=== PATIENT | female | born 1985 | race Two or more races ===

== ENCOUNTER 2017-09-09 17:38 | Inpatient (IN) | payer BC, OTHER ==
[2017-09-09 17:46] VITALS: BMI 30.9
[2017-09-09] MEDS: Lactated Ringer's 1,000 ML IV SCH ×2 (18:00→18:51)
[2017-09-09] MEDS ORDERED: Lidocaine 1% Inj (20ml) ONE (18:20)
[2017-09-09] MEDS ORDERED: Bupivacaine HCl 0.25% PF (10 ml) Inj ONE (18:30)
[2017-09-09] MEDS ORDERED: Fentanyl/Bupivacaine HCl 250 ML EPI ONE (18:35)
[2017-09-09 18:37] LABS: BASO # 0.1 K/uL (0.0-0.2); BASO % 0.5 % (0.0-2.0); EOS # 0.1 K/uL (0.0-0.7); EOS % 0.4 % (0.0-4.0); HEMOGLOBIN 10.3 g/dL (12.0-16.0); LYMPH # 2.6 K/uL (1.0-4.3); LYMPH % 20.1 % (20.0-40.0); MEAN CELL VOLUME 84.5 fl (81.0-99.0); MEAN CORPUSCULAR HEMOGLOBIN 27.9 pg (27.0-31.0); MEAN PLATELET VOLUME 10.4 fl (7.2-11.7); MONO # 0.8 K/uL (0.0-0.8); MONO % 6.4 % (0.0-10.0); NEUT # 9.3 K/uL (1.8-7.0); NEUT % 72.6 % (50.0-75.0); NRBC % 0.1 % (0.0-0.0); RBC 3.69 Mil/uL (3.80-5.20); RED CELL DISTRIBUTION WIDTH 15.2 % (11.5-14.5); WHITE BLOOD COUNT 12.8 K/uL (4.8-10.8)
--- NOTE | 2017-09-09 19:06 | OBADHP ---
Datetime: 09/09/2017 18:20 Admit Comment, IP Provider: Patient is a @ 39.4 wks with hypothyroidism, previous delivery . Antepartum history includes history of polyhydramnios, no other problems. NO allergies, taking synt hroid VE=7/80/-2 [id number] mod doyle, +accels, no decels TOCO = ctxning q 5-7 mins A/P 1. Patient admitted for labor, 7cm 2. IVF, CBC, type and screen 3. epidural for pain 4. CEFM and TOCO Pelvic Type - PN: Adequate Extremities - PN: Normal Abdomen - PN: Normal Back - PN: Normal Breast - PN: Normal Lungs - PN: Normal Heart - PN: Normal Thyroid - PN: Normal Neurologic - PN: Normal HEENT - PN: Normal General - PN: Normal Presentation-Admit: Vertex FHR - Baseline A Provider: 120 Contraction Comments Provider: q 5-7 Vital Signs Provider: Reviewed; Within Normal Limits IP Chief Complaint: Uterine contractions NICHD Variability Prov Fetus A: Moderate 6-25bpm NICHD Decel Fetus A IP Provider: None; Early Dilatation, Provider: 7 Effacement, Provider: 70 Station, Provider: -2 Genitourinary Exam: Normal DTRs - PN: Normal IP Adm Impression: Term, intrauterine IP Admit Plan: Admit to unit; Initiate labor protocol
--- NOTE | 2017-09-09 19:52 | OBPN ---
Datetime: 09/09/2017 19:41 IP Progress Impression: Normal progression of labor IP Informed Consent Obtain: Vaginal Delivery IP Procedures: Sterile Vag Exam IP Progress Plan: Continue present management Membranes, Provider: Ruptured Amniotic Fluid Color, Provider: Meconium, Light Contraction Comments Provider: q 4mins FHR - Baseline A Provider: 150 IP Progress Note Comment: Patient evaluated, comfortable s/p epidural VE=8/80/-1, ruptured, light meconium [id number] mod doyle, +accels, early decels TOCO = james q 4 mins A/P 1. AROM, 8cm, light 2. CEFM and TOCO 3. RE-evaluate as needed Vital Signs Provider: Reviewed; Within Normal Limits NICHD Variability Prov Fetus A: Moderate 6-25bpm Dilatation, Provider: 8 Effacement, Provider: 80 Station, Provider: -1 NICHD Decel Fetus A IP Provider: Early Datetime: 09/09/2017 18:20 Presentation-Admit: Vertex
[2017-09-09] MEDS ORDERED: Oxycodone/Acetaminophen 5/325 mg Tab PO PRN ×2 (23:43)
[2017-09-10] MEDS ORDERED: Oxycodone/Acetaminophen 5/325 mg Tab PO PRN ×2 (00:06)
[2017-09-10] MEDS: Levothyroxine 200 MCG TAB PO SCH (06:11)
[2017-09-10 07:56] LABS: HEMOGLOBIN 8.3 g/dL (12.0-16.0); MEAN CELL VOLUME 84.8 fl (81.0-99.0); MEAN CORPUSCULAR HEMOGLOBIN 27.5 pg (27.0-31.0); MEAN CORPUSCULAR HGB CONC 32.4 g/dL (33.0-37.0); RBC 3.03 Mil/uL (3.80-5.20); RED CELL DISTRIBUTION WIDTH 15.2 % (11.5-14.5); WHITE BLOOD COUNT 11.7 K/uL (4.8-10.8)
--- NOTE | 2017-09-10 08:41 | OBDS ---
DELIVERY PERSONNEL Delivery Doctor: Julian Linda MD Tie Sawyer: Kesha Emanuel RN Anesthesiologist: Jonn Knowles MD MATERNAL INFORMATION Delivery Anesthesia: Local; Epidural Medications in Delivery: Oxytocin Estimated Blood Loss (ml): 300 Placenta Cultured: No Maternal Complications: None Provider Comments: Normal spontaneous vaginal delivery. Patient delivered viable infant female with Apgars of 5 and 9 at one and 5 minutes respectively. I nfant delivered via MARY position. Placenta delivered spontaneously. Laceration repaired, as above. Pa tient tolerated delivery and repair well. No complications. Estimate blood loss 200 mL. LABOR SUMMARY EDC: 09/12/2017 00:00 No. Babies in Womb: 1 Attempted: No Labor Anesthesia: Epidural LABOR INFORMATION Reason for Induction: Not Applicable Onset of Labor: 09/09/2017 19:55 Complete Dilatation: 09/09/2017 20:15 Oxytocin: N/A Group B Beta Strep: Negative Steroids Given: None Reason Steroids Not Administered: Not Applicable MEMBRANES Membranes Rupture Method: Artificial Rupture of Membranes: 09/09/2017 19:20 Length of Rupture (hrs): 1.27 Amniotic Fluid Color: Light Meconium Amniotic Fluid Amount: Moderate Amniotic Fluid Odor: Normal STAGES OF LABOR Stage 1 hrs: 0 Stage 1 min: 20 Stage 2 hrs: 0 Stage 2 min: 21 Stage 3 hrs: 0 Stage 3 min: 2 Total Time in Labor hrs: 0 Total Time in Labor min: 43 VAGINAL DELIVERY Episiotomy: None Laceration Extension: First Degree Laceration Type: Perineal Laceration Repair: Yes Laceration Repair Note: First-degree perineal laceration. Area infiltrated with 1% lidocaine. Surgeo n repaired with 2. 0 Rapide without complication. Patient tolerated well. Initial Vag Sponge Count: 5 Final Vag Sponge Count: 5 Initial Vag Sharps Count: 2 Final Vag Sharps Count: 2 Sponge Count Correct: Yes Sharps Count Correct: Yes BABY A INFORMATION Infant Delivery Date/Time: 09/09/2017 20:36 Method of Delivery: Vaginal Born in Route : No : N/A Forceps: N/A Vacuum Extraction: N/A Shoulder Dystocia : No SHOULDER DYSTOCIA BABY A Delivery Date/Time: 09/09/2017 20:36 PRESENTATION/POSITION BABY A Presentation: Cephalic Cephalic Presentation: Vertex PLACENTA INFORMATION BABY A Placenta Delivery Time : 09/09/2017 20:38 Placenta Method of Delivery: Spontaneous Placenta Status: Delivered SCORES BABY A Heart Rate 1 min: Slow, Below 100 bpm Resp Effort 1 min: Slow, Irregular Reflex Irritability 1 min: Cough or Sneeze or Pulls Away Muscle Tone 1 min: Active Motion Color 1 min: Blue/Pale Resuscitation Effort 1 min: Tactile Stimulation; Oxygen; PPV/NCPAP SCORE 1 MIN: 6 Heart Rate 5 min: >100 bpm Resp Effort 5 min: Good Cry Reflex Irritability 5 min: Cough or Sneeze or Pulls Away Muscle Tone 5 min: Active Motion Color 5 min: Body [place], Extremities Blue SCORE 5 MIN: 9 INFORMATION BABY A Gestational Age at Delivery: 39.4 Gestational Status: Term Infant Outcome : Liveborn Condition : Stable Infant Sex: Male IDENTIFICATION/MEDS BABY A ID Band Number: [id number] ID Band Location: Left Leg; Left Arm WEIGHT/LENGTH BABY A Infant Birthweight (gms): 3230 Weight (lb): 7 Infant Weight (oz): 2 CORD INFORMATION BABY A No. Cord Vessels: 3 Nuchal Cord : N/A Cord Blood Taken: Yes Infant Suction: Mouth; Nose RESUSCITATION BABY A Resuscitation Effort: Tactile Stimulation; Oxygen; PPV/NCPAP
[2017-09-11] MEDS: Levothyroxine 200 MCG TAB PO SCH (06:20)
--- NOTE | 2017-09-11 09:09 | OBPPN ---
Datetime: 09/11/2017 09:03 PP Pain Prov: Within normal limits PP Nausea Prov: Denies PP Flatus Prov: Yes PP Breasts Prov: Normal PP Heart Prov: Normal PP Lungs Prov: Normal PP Abdomen/Uterus Prov: Normal PP Lochia Prov: Normal PP Vulva/Perineum Prov: Normal PP CVA Tenderness Prov: Normal PP Extremities Prov: Normal PP Comments Phys Exam Prov: Abd: Soft, NT, BS- present [place]- Firm, NT PP Impression Prov: Normal progression PP Plan Prov: Discharge PP Progress Note Prov: S/P , PPD #2 Clinically Stable. Plan: D/C Home Vital Signs Provider PP: Reviewed
--- NOTE | 2017-09-11 09:14 | OBDCSUM ---
Datetime: 09/11/2017 09:09 Discharged to, Provider: Home Follow up at, Provider: [facility] Office Disch Instr Activity: Normal activity Disch Instr Diet: Regular Discharge Instructions, Provider: Routine instructions given Discharge Diagnosis, Provider: Term Delivered Discharge Time: 09/11/2017 09:09 Follow up in weeks, Provider: 4-6 weeks Disch Referrals: None Contraception discussed, Prov: Yes Discharge Comment, Provider: S/P Uncomplicated , Clinically Stable Discharge Diagnosis Prov Other: S/P Uncomplicated , Clinically Stable
[2017-09-11 11:12] VITALS: TEMP 97.8
[2017-09-11 21:49] VITALS: BP 132/73; PULSE 50; RESP 19; O2SAT 100
--- NOTE | 2017-09-12 09:02 | OBPPN ---
Datetime: 09/10/2017 14:11 PP Pain Prov: Within normal limits PP Nausea Prov: Denies PP Flatus Prov: Yes PP Breasts Prov: Normal PP Heart Prov: Normal PP Lungs Prov: Normal PP Abdomen/Uterus Prov: Normal PP Lochia Prov: Normal PP Vulva/Perineum Prov: Normal PP CVA Tenderness Prov: Normal PP Extremities Prov: Normal PP Comments Phys Exam Prov: Abd: Soft, NT , BS- present [place]- Firm , NT PP Impression Prov: Normal progression PP Plan Prov: Continue present management PP Progress Note Prov: S/P , Clinically Stable. Plan: Continue care
== END 2017-09-11 17:45 | disposition home or self-care (01) | DRG 775 ==
LOC: H.EROB2 17:38 → H.L&D 18:00 → H.OB/GYN 23:30
PROVIDERS: ADMIT Obstetrics & Gynecology; ATTEND Obstetrics & Gynecology
PROC: 10E0XZZ Delivery of Products of Conception, External Approach (ICD-10-PCS; principal; 2017-09-09)
PROC: 0HQ9XZZ Repair Perineum Skin, External Approach (ICD-10-PCS; 2017-09-09)
PROC: 4A1HXCZ Monitoring of Products of Conception, Cardiac Rate, External Approach (ICD-10-PCS; 2017-09-09)
DX: O99.284 Endocrine, nutritional and metabolic diseases complicating childbirth (principal); O40.3XX0 Polyhydramnios, third trimester, not applicable or unspecified; E03.9 Hypothyroidism, unspecified; Z37.0 Single live birth; Z3A.39 39 weeks gestation of pregnancy; O77.0 Labor and delivery complicated by meconium in amniotic fluid; O70.0 First degree perineal laceration during delivery